=== PATIENT | male | born 1950 | race Caucasian/White ===

== ENCOUNTER 2020-01-27 08:22 | Day surgery (SDC) | payer MEDICARE ==
[2020-01-20 16:12] LABS: BASOPHILS % (AUTO) 0.8 % (0-1); EOSINOPHILS # (AUTO) 0.2 X10'3 (0-0.9); EOSINOPHILS % (AUTO) 3.5 % (0-6); LYMPHOCYTES # (AUTO) 1.6 X10'3 (1.1-4.8); LYMPHOCYTES % (AUTO) 25.5 % (21-51); MEAN CORPUSCULAR HGB CONC 33.8 g/dL (33.0-36.5); MEAN CORPUSCULAR VOLUME 94.8 FL (78-98); MEAN PLATELET VOLUME 8.6 FL (7.4-10.4); MONOCYTES # (AUTO) 0.4 X10'3 (0-0.9); MONOCYTES % (AUTO) 6.7 % (2-12); NEUTROPHILS # (AUTO) 3.9 X10'3 (1.8-7.7); NEUTROPHILS % (AUTO) 63.5 % (42-75); PRE OP HEMATOCRIT 45.1 % (42.0-52.0); PRE OP HEMOGLOBIN 15.2 g/dL (14.0-17.9); PRE OP PLATELET COUNT 178 X10'3 (140-440); RED BLOOD COUNT 4.75 X10'6 (4.70-6.10); RED CELL DISTRIBUTION WIDTH 12.9 % (11.5-14.5)
[2020-01-20 16:20] LABS: CLARITY,URINE CLEAR (Clear); COLOR,URINE YELLOW (Yellow); GLUCOSE, URINE NEGATIVE (Neg); KETONES,URINE NEGATIVE (Neg); LEUKOCYTE ESTERASE ,URINE NEGATIVE (Neg); NITRITES, URINE NEGATIVE (Neg); OCCULT BLOOD,URINE LARGE (Neg); PROTEIN,URINE NEGATIVE (Neg); UROBILINOGEN,URINE 0.2 E.U/dL (0.2-1.0)
[2020-01-20 16:28] LABS: UA COLLECTION TYPE NON-SPECIFIED
[2020-01-20 16:28] LABS: ALBUMIN 4.3 G/DL (3.4-5.0); ALBUMIN/GLOBULIN RATIO 1.4 (1.1-1.5); ALKALINE PHOSPHATASE 82 IU/L (46-116); BLOOD UREA NITROGEN 21 MG/DL (7-18); BUN/CREATININE RATIO 19.8 (5.4-32.0); CALCIUM 9.2 MG/DL (8.5-10.1); CHLORIDE 111 MMOL/L (99-107); CREATININE 1.06 MG/DL (0.60-1.10); PRE OP ALT 33 U/L (30-65); PRE OP ANION GAP 7 (8-16); PRE OP AST 25 U/L (10-37); PRE OP BILIRUB, TOTAL 0.6 MG/DL (0.0-1.0); PRE OP GLUCOSE 103 MG/DL (70-104); PRE OP SODIUM 146 MMOL/L (135-145); TOTAL CARBON DIOXIDE 27.7 MMOL/L (24-32); TOTAL PROTEIN 7.4 G/DL (6.4-8.2); eGFR 69 ML/MIN
[2020-01-20 16:29] LABS: BACTERIA,URINE NONE SEEN /HPF (Neg); MUCUS STRANDS NONE SEEN /LPF (Neg); RBC,URINE 0-2 /HPF (0-2); SQUAMOUS EPITHELIAL CELL,UR FEW /LPF (FEW); WBC,URINE 0-4 /HPF (0-4)
[~2020-01-27] VITALS: Ht 182.9 cm; Wt 87.5 kg
[2020-01-27] VITALS (9 sets, daily range): BP systolic 106–143; BP diastolic 50–79
[~2020-01-27 08:22] MED LIST: ASPI-612 PO; ATOR40TA PO; FLAX100032 PO; MULT-1085 PO; OMEG-79 PO; UBID200C37 PO; cefazolin/dext.iso 2gm/50ml 50 ML IV ONE; famotidine 20mg tablet PO ONE; ringers solution, lacted 1,000 ML IV SCH
[2020-01-27] MEDS ORDERED: ringers solution, lacted 1,000 ML IV SCH (10:27)
[2020-01-27] MEDS ORDERED: acetaminophen 1,000mg/100ml IV 100 ML IV PRN (10:30)
[2020-01-27] MEDS ORDERED: ondansetron/PF 4mg/2ml inj IV PRN (10:30)
[2020-01-27] MEDS ORDERED: morphine 2 MG/ML inj. syringe IV PRN (10:30)
[2020-01-27] MEDS ORDERED: morphine 4 MG/ML inj SYRINge IV PRN (10:30)
[2020-01-27] MEDS ORDERED: proCHLORperazine 10 MG/2 ml inj IV PRN (10:30)
[2020-01-27] MEDS ORDERED: meperidine/PF 25mg/ml syringe IV PRN ×2 (10:30)
[2020-01-27] MEDS ORDERED: BUPIVAcaine/PF 2.5 mg/ml (0.25%) 30ml vial ONE (12:01)
[2020-01-27] MEDS ORDERED: bacitracin 15gm ointment TP ONE (12:01)
[2020-01-27] MEDS ORDERED: sevoflurane 250ml liquid IH ONE (12:23)
[2020-01-27] MEDS ORDERED: fentaNYL/PF 50MCG/1 ML 2ML syringe ONE (12:34)
[2020-01-27] MEDS ORDERED: midazolam 2 mg/2 ml injection ONE (12:34)
[2020-01-27] MEDS ORDERED: propofol inj 20 ML IV ONE (12:48)
[2020-01-27] MEDS ORDERED: LIDOcaine 2% (20mg/ml) 5ml vial ONE (12:48)
[2020-01-27] MEDS ORDERED: glycopyrrolate 0.2mg/ml inj ONE (12:52)
[2020-01-27] MEDS ORDERED: ondansetron/PF 4mg/2ml inj ONE (13:02)
[2020-01-27] MEDS ORDERED: dexamethasone sod phosphate 4mg/ml inj. ONE (13:02)
[2020-01-27] MEDS ORDERED: LIDOcaine 2% 5ml jelly ONE (13:47)
--- NOTE | 2020-01-27 14:02 | NUR ---
Received from OR via , accompanied by Anesthesiologist DR RICH and report given by Anesthesiolgist. AWAKENS TO VOICE. VITALS STABLE. DRESSING DI. KAUSHIK PAIN.
[2020-01-27] MEDS: meperidine/PF 25mg/ml syringe IV PRN ×2 (14:13→14:30)
--- NOTE | 2020-01-27 15:12 | NUR ---
AWAKE AND ORIENTED. VITALS STABLE. DRESSING DI. STATES MIN DISCOMFORT TO SURGICAL SITE. HOME WITH HIS AT THIS TIME.
== END 2020-01-27 15:12 | disposition home or self-care (01) ==
LOC: PAS 08:22
PROVIDERS: ATTEND Podiatrist Foot & Ankle Surgery
DX: M20.21 Hallux rigidus, right foot (principal); M19.071 Primary osteoarthritis, right ankle and foot; M17.11 Unilateral primary osteoarthritis, right knee; E78.00 Pure hypercholesterolemia, unspecified; Z11.59 Encounter for screening for other viral diseases; Z79.899 Other long term (current) drug therapy; Z98.890 Other specified postprocedural states; Z87.891 Personal history of nicotine dependence; Z88.8 Allergy status to other drugs, medicaments and biological substances; Z80.9 Family history of malignant neoplasm, unspecified
CPT/HCPCS: 28750; 36415; 73620; 76000; 80053; 81001; 82948; 85025; 93005; A6223; C1713; J0131; J1100; J2001; J2175; J2250; J2405; J2704; J3010; J3490; U0003; A4215; A4618; A6253; A6449; A7000; J7120

== ENCOUNTER 2024-01-03 12:28 | Outpatient (CLI) | payer OTHER ==
[~2024-01-03 12:28] MED LIST changes: -cefazolin/dext.iso 2gm/50ml 50 ML IV ONE; -famotidine 20mg tablet PO ONE; -ringers solution, lacted 1,000 ML IV SCH
== END 2024-01-03 23:59 | disposition home or self-care (01) ==
LOC: MRI 12:28
PROVIDERS: ATTEND Nurse Practitioner
DX: M48.07 Spinal stenosis, lumbosacral region (principal); M51.36 Other intervertebral disc degeneration, lumbar region; M47.897 Other spondylosis, lumbosacral region; M54.59 Other low back pain; M51.37 Other intervertebral disc degeneration, lumbosacral region
CPT/HCPCS: 72148